=== PATIENT | female | born 1995 | race Caucasian/White ===

== ENCOUNTER 2023-01-13 19:08 | Emergency (ER) | payer OTHER, SELFPAY ==
[2023-01-13] MEDS ORDERED: Lidocaine 1% w/Epinephrine 1:100K 30 ML VIAL ONE (19:22)
[2023-01-13] MEDS ORDERED: Morphine 4 MG/ML VIAL ONE (19:34)
[2023-01-13] MEDS ORDERED: Sterile Water 10 ML ONE (19:52)
[2023-01-13] MEDS ORDERED: CEFAZOLIN 2 GM VIAL ONE ×2 (19:52→19:54)
[2023-01-13] MEDS ORDERED: CEFAZOLIN 1 GM VIAL ONE (19:53)
[2023-01-13] MEDS ORDERED: Bacitracin 1 PK ONE (20:11)
== END 2023-01-13 20:43 | disposition home or self-care (01) ==
LOC: MADERS 19:08
DX: S21.012A Laceration without foreign body of left breast, initial encounter (principal); S21.032A Puncture wound without foreign body of left breast, initial encounter; F17.210 Nicotine dependence, cigarettes, uncomplicated; W26.8XXA Contact with other sharp object(s), not elsewhere classified, initial encounter
CPT/HCPCS: 12032; 96372; J0690; J2270